=== PATIENT | male | born 1935 | race Caucasian/White ===

== ENCOUNTER → 2016-09-04 | Outpatient (CLI) | payer MEDICARE, OTHER | END | disposition short-term general hospital (02) | LOC: CLCARD 09:04 | DX: I25.10 Atherosclerotic heart disease of native coronary artery without angina pectoris (principal); E78.5 Hyperlipidemia, unspecified; I47.1 Supraventricular tachycardia; I77.819 Aortic ectasia, unspecified site; I10 Essential (primary) hypertension; Z95.5 Presence of coronary angioplasty implant and graft ==